=== PATIENT | female | born 1970 | race Two or more races ===

== ENCOUNTER 2017-10-17 12:10 | Outpatient (CLI) | payer OTHER | END 2017-10-17 13:34 | disposition home or self-care (01) | LOC: MAMO-SONO 12:10 | DX: Z12.31 Encounter for screening mammogram for malignant neoplasm of breast (principal); N60.11 Diffuse cystic mastopathy of right breast; N60.12 Diffuse cystic mastopathy of left breast ==

== ENCOUNTER 2017-10-17 12:18 | Outpatient (CLI) | payer OTHER | END 2017-10-17 12:58 | disposition home or self-care (01) | LOC: LAB 12:18 | DX: R19.5 Other fecal abnormalities (principal); R80.1 Persistent proteinuria, unspecified; E78.2 Mixed hyperlipidemia; I11.9 Hypertensive heart disease without heart failure; I10 Essential (primary) hypertension; J44.9 Chronic obstructive pulmonary disease, unspecified; E11.69 Type 2 diabetes mellitus with other specified complication; E03.8 Other specified hypothyroidism; R73.03 Prediabetes; E03.1 Congenital hypothyroidism without goiter; K57.32 Diverticulitis of large intestine without perforation or abscess without bleeding; N92.4 Excessive bleeding in the premenopausal period ==

== ENCOUNTER 2017-10-22 08:16 | Outpatient (CLI) | payer OTHER | END 2017-10-22 09:13 | disposition home or self-care (01) | LOC: LAB 08:16 | DX: R19.5 Other fecal abnormalities (principal); R80.1 Persistent proteinuria, unspecified; E78.2 Mixed hyperlipidemia; I11.9 Hypertensive heart disease without heart failure; I10 Essential (primary) hypertension; J44.9 Chronic obstructive pulmonary disease, unspecified; E11.69 Type 2 diabetes mellitus with other specified complication; E03.8 Other specified hypothyroidism; N92.4 Excessive bleeding in the premenopausal period; R73.03 Prediabetes; E03.1 Congenital hypothyroidism without goiter ==

== ENCOUNTER 2020-04-28 10:46 | Outpatient (CLI) | payer OTHER | END 2020-04-28 11:02 | disposition home or self-care (01) | LOC: MRI 10:46 | DX: D16.22 Benign neoplasm of long bones of left lower limb (principal); M25.562 Pain in left knee; M94.262 Chondromalacia, left knee | CPT/HCPCS: 73718 ==

== ENCOUNTER 2020-04-28 12:10 | Outpatient (CLI) | payer OTHER | END 2020-04-28 15:00 | disposition home or self-care (01) | LOC: LAB 12:10 | PROVIDERS: ATTEND Specialist | DX: E03.8 Other specified hypothyroidism (principal) ==

== ENCOUNTER 2020-09-08 15:19 | Outpatient (CLI) | payer OTHER | END 2020-09-08 15:36 | disposition home or self-care (01) | LOC: RAD 15:19 | PROVIDERS: ATTEND Orthopaedic Surgery | DX: M16.12 Unilateral primary osteoarthritis, left hip (principal); M25.552 Pain in left hip ==

== ENCOUNTER 2021-03-19 09:00 | Outpatient (CLI) | payer OTHER | END 2021-03-19 09:13 | disposition home or self-care (01) | LOC: RAD 09:00 | PROVIDERS: ATTEND Orthopaedic Surgery | DX: D16.22 Benign neoplasm of long bones of left lower limb (principal) ==

== ENCOUNTER 2021-06-05 08:57 | Emergency (ER) | payer OTHER ==
[~2021-06-05] VITALS: Ht 170.2 cm; Wt 131.5 kg
[2021-06-05] MEDS ORDERED: LEVOTHYROXINE25 MCG (09:03)
== END 2021-06-05 14:33 | disposition home or self-care (01) ==
LOC: ER 08:57
DX: S89.92XA Unspecified injury of left lower leg, initial encounter (principal); R60.0 Localized edema; Y92.002 Bathroom of unspecified non-institutional (private) residence as the place of occurrence of the external cause; W22.8XXA Striking against or struck by other objects, initial encounter

== ENCOUNTER 2021-08-31 15:49 | Outpatient (CLI) | payer OTHER ==
[~2021-08-31 15:49] MED LIST: LEVOTHYROXINE25 MCG
== END 2021-08-31 15:54 | disposition home or self-care (01) ==
LOC: SONOGRAMA 15:49
PROVIDERS: ATTEND Specialist
DX: N20.0 Calculus of kidney (principal); N39.0 Urinary tract infection, site not specified

== ENCOUNTER 2022-02-05 09:56 | Outpatient (CLI) | payer OTHER | END 2022-02-05 10:06 | disposition home or self-care (01) | LOC: SONOGRAMA 09:56 | PROVIDERS: ATTEND Internal Medicine Gastroenterology | DX: R10.11 Right upper quadrant pain (principal) ==

== ENCOUNTER 2022-02-05 11:00 | Outpatient (CLI) | payer OTHER | END 2022-02-05 11:15 | disposition home or self-care (01) | LOC: LAB 11:00 | PROVIDERS: ATTEND Internal Medicine Gastroenterology | DX: R10.11 Right upper quadrant pain (principal); E78.9 Disorder of lipoprotein metabolism, unspecified ==

== ENCOUNTER 2022-04-24 20:26 | Emergency (ER) | payer OTHER ==
[~2022-04-24] VITALS: Ht 172.7 cm; Wt 122.5 kg
[2022-04-25] MEDS ORDERED: CLEOCIN HCL300 MG PO (00:26)
[2022-04-25] MEDS ORDERED: INTESTINEX680 M1 PO (00:26)
== END 2022-04-25 02:23 ==
LOC: ER 20:26
DX: L02.219 Cutaneous abscess of trunk, unspecified (principal); E11.9 Type 2 diabetes mellitus without complications; Z88.2 Allergy status to sulfonamides

== ENCOUNTER → 2022-09-14 10:40 | Outpatient (CLI) | payer OTHER ==
[~2022-09-14 10:40] MED LIST changes: +CLEOCIN HCL300 MG PO; +INTESTINEX680 M1 PO
== END | disposition home or self-care (01) ==
LOC: LAB 10:40
PROVIDERS: ATTEND Orthopaedic Surgery
DX: I10 Essential (primary) hypertension (principal); E11.69 Type 2 diabetes mellitus with other specified complication; E03.8 Other specified hypothyroidism; R19.5 Other fecal abnormalities; J44.9 Chronic obstructive pulmonary disease, unspecified; I11.9 Hypertensive heart disease without heart failure; E78.2 Mixed hyperlipidemia; E55.9 Vitamin D deficiency, unspecified; M85.9 Disorder of bone density and structure, unspecified; E56.1 Deficiency of vitamin K; E83.42 Hypomagnesemia

== ENCOUNTER 2022-09-14 11:26 | Outpatient (CLI) | payer OTHER | END 2022-09-14 12:00 | disposition home or self-care (01) | LOC: MAMO-SONO 11:26 | PROVIDERS: ATTEND Specialist | DX: Z12.31 Encounter for screening mammogram for malignant neoplasm of breast (principal); R92.0 Mammographic microcalcification found on diagnostic imaging of breast; N63.0 Unspecified lump in unspecified breast ==

== ENCOUNTER 2023-07-18 09:02 | Outpatient (CLI) | payer OTHER | END 2023-07-18 09:12 | disposition home or self-care (01) | LOC: RAD 09:02 | DX: M54.17 Radiculopathy, lumbosacral region (principal) ==

== ENCOUNTER 2023-07-18 10:04 | Outpatient (CLI) | payer OTHER ==
[2023-07-18 11:27] LABS: PH,URINE 6.5 (5.0-8.0); URINE APPEARANCE Clear; URINE BILIRRUBIN Negative (NEGATIVE); URINE BLOOD Trace; URINE COLOR Yellow; URINE GLUCOSE Negative (NEGATIVE); URINE LEUKOCYTE Trace; URINE NITRATE Negative; URINE PROTEIN Negative (NEGATIVE)
[2023-07-18 11:28] LABS: HEMOGLOBIN 12.1 g/dL (12.0-15.00); MEAN CELL VOLUME 92.3 fL (80.00-100.00); MEAN CORPUSCULAR HEMOGLOBIN 31.1 pg (27.00-32.0); MEAN CORPUSCULAR HGB CONC 33.7 g/dl (32.0-36.0); PLATELET COUNT 251 K/uL (150-450); RED CELL DISTRIBUTION WIDTH 14.4 % (11.5-14.5)
[2023-07-18 11:32] LABS: URINE BACTERIA 492.5 uL (0.0-1933); URINE EPITHELIAL CELLS 16.2 uL (0.0-38.8); URINE RBC 6.8 uL (0.0-20.8); URINE WBC 37.2 uL (0.0-23.2)
[2023-07-18 12:09] LABS: ALBUMIN 3.3 gm/dL (3.4-5.0); BILIRUBIN TOTAL 0.39 mg/dL (0.3-1.2); CALCIUM 8.8 mg/dL (8.5-10.1); CHOL HDL RATIO 2.3 (0-5.0); CREATININE SERUM 0.76 mg/dL (0.55-1.02); GFR 79.91; GLOBULINA 3.7 G/DL (2.4-3.5); POTASSIUM 4.1 mEq/L (3.5-5.1)
== END 2023-07-18 10:11 | disposition home or self-care (01) ==
LOC: LAB 10:04
PROVIDERS: ATTEND Physical Medicine & Rehabilitation
DX: D51.0 Vitamin B12 deficiency anemia due to intrinsic factor deficiency (principal); Z13.1 Encounter for screening for diabetes mellitus; E78.9 Disorder of lipoprotein metabolism, unspecified; E83.51 Hypocalcemia; E55.9 Vitamin D deficiency, unspecified; R73.09 Other abnormal glucose; N39.0 Urinary tract infection, site not specified

== ENCOUNTER 2025-04-10 10:36 | Outpatient (CLI) | payer OTHER | END 2025-04-10 10:40 | disposition home or self-care (01) | LOC: RAD 10:36 | PROVIDERS: ATTEND Orthopaedic Surgery | DX: M25.561 Pain in right knee (principal); M25.562 Pain in left knee ==